=== PATIENT | female | born 1990 | race Caucasian/White ===

== ENCOUNTER 2023-04-26 12:52 | Outpatient (RCR) | payer OTHER | END 2023-04-29 | disposition home or self-care (01) | LOC: WSOT | DX: M79.642 Pain in left hand (principal) ==

== ENCOUNTER → 2023-07-03 | Outpatient (CLI) | payer OTHER | LOC: COL.RAD 07:33 | DX: M50.30 Other cervical disc degeneration, unspecified cervical region (principal) ==

== ENCOUNTER → 2023-07-11 | Outpatient (CLI) | payer OTHER | LOC: MHCPAIN 13:56 | DX: M25.512 Pain in left shoulder (principal); M54.2 Cervicalgia; R20.0 Anesthesia of skin | CPT/HCPCS: G0463 ==

== ENCOUNTER → 2023-08-22 | Outpatient (CLI) | payer OTHER | LOC: MHCPAIN 13:57 | DX: M25.512 Pain in left shoulder (principal); M54.2 Cervicalgia; R20.0 Anesthesia of skin | CPT/HCPCS: G0463 ==

== ENCOUNTER → 2023-12-12 | Outpatient (CLI) | payer OTHER | LOC: MHCPAIN 12:48 | DX: M79.18 Myalgia, other site (principal); M25.512 Pain in left shoulder; G62.9 Polyneuropathy, unspecified | CPT/HCPCS: G0463 ==

== ENCOUNTER → 2024-04-02 | Outpatient (CLI) | payer OTHER | LOC: MHCPAIN 10:56 | DX: M79.18 Myalgia, other site (principal); G62.9 Polyneuropathy, unspecified; M25.512 Pain in left shoulder | CPT/HCPCS: G0463 ==